=== PATIENT | female | born 1970 | race Hispanic/Latino ===

== ENCOUNTER 2024-02-24 12:06 | Inpatient (IN) | payer BC ==
[~2024-02-24] VITALS: Ht 152.4 cm; Wt 66.6 kg
[2024-02-24] MEDS: ASPIRIN 325MG TAB PO ONE (12:36)
[2024-02-24] MEDS: morPHINE 4 MG SYG IVP ONE (12:37)
[2024-02-24] MEDS: NITROGLYCERIN 0.4 MG SL TAB SL PRN (12:37)
[2024-02-24 13:05] LABS: BASOPHILS # (AUTO) 0.04 K/uL (0.00-0.20); BASOPHILS % (AUTO) 0.9 % (0.0-5.0); CREATININE 0.8 mg/dL (0.5-1.0); EOSINOPHILS # (AUTO) 0.05 K/uL (0.00-0.70); EOSINOPHILS % (AUTO) 1.1 % (0.0-8.0); HEMATOCRIT 33.8 % (36-48); IMMATURE GRANULOCYTE ABSOLUTE 0.02 K/uL (0-1); LYMPHOCYTES # (AUTO) 1.5 K/uL (1.0-4.8); LYMPHOCYTES % (AUTO) 32.4 % (21.0-51.0); MEAN CORPUSCULAR HEMOGLOBIN 29.6 pg (27.0-33.0); MEAN CORPUSCULAR HGB CONC 33.1 g/dL (32.0-36.0); MEAN CORPUSCULAR VOLUME 89.4 fL (79-99); MONOCYTES # (AUTO) 0.3 K/uL (0.1-1.0); NEUTROPHILS # (AUTO) 2.6 K/uL (1.8-7.7); NEUTROPHILS % (AUTO) 59.2 % (40.0-77.0); PLATELET COUNT (AUTO) 245 K/uL (130-400); POTASSIUM 3.9 mmol/L (3.5-5.1); RED BLOOD CELL COUNT(AUTO) 3.78 MIL/uL (4.00-5.50); RED CELL DISTRIBUTION WIDTH 13.2 % (11.0-15.5); WHITE BLOOD COUNT (AUTO) 4.5 K/uL (4.8-10.8)
[2024-02-24 13:19] LABS: ADD UA MICROSCOPIC YES; APPEARANCE,URINE CLEAR (CLEAR); BILIRUBIN,URINE NEGATIVE (NEGATIVE); COLOR,URINE COLORLESS (YELLOW); GLUCOSE, URINE (UA) >=1000 mg/dL (NEGATIVE); KETONES,URINE NEGATIVE (NEGATIVE); LEUKOCYTE ESTERASE ,URINE NEGATIVE Leu/uL (NEGATIVE); NITRATE,URINE NEGATIVE (NEGATIVE); OCCULT BLOOD,URINE NEGATIVE (NEGATIVE); PH,URINE 5.5 (5.0-8.0); PROTEIN,URINE NEGATIVE (NEGATIVE); UROBILINOGEN,URINE 0.2 mg/dL (0.2-1.0)
[2024-02-24 13:23] LABS: MUCUS,URINE RARE LPF (None Seen); RBC,URINE 0-1 /HPF (0-1); SQUAMOUS EPITHELIAL CELL,UR RARE /HPF (0-2); WBC,URINE 0-1 /HPF (0-1)
[2024-02-24 13:33] LABS: B-TYPE NATRIURETIC PEPTIDE 18 pg/mL (0-100)
[2024-02-24] MEDS ORDERED: LACTULOSE 20 GM/30 ML UDCUP PO PRN (15:30)
[2024-02-24] MEDS ORDERED: morPHINE 4 MG SYG IV PRN (15:30)
[2024-02-24] MEDS ORDERED: DEXTROSE 50%-WATER 50 ML DISP.SYRIN IV PRN (15:30)
[2024-02-24] MEDS ORDERED: ondanSETRON 4MG INJ IV PRN (15:30)
[2024-02-24] MEDS ORDERED: morPHINE 2 MG SYG IV PRN (15:30)
[2024-02-24] MEDS ORDERED: MAG/ALUM/SIMETH 30 ML UDCUP PO PRN (15:30)
[2024-02-24] MEDS ORDERED: hydrALAZine 20MG/ML VIAL IV PRN (15:30)
[2024-02-24] MEDS ORDERED: NITROGLYCERIN 0.4 MG SL TAB SL PRN (15:30)
[2024-02-24] MEDS ORDERED: GLUCAGON 1MG KIT 1 MG ML IM PRN (15:30)
[2024-02-24] MEDS ORDERED: DiphenhydrAMINE HCL 25 MG CAPSULE PO PRN (15:30)
[2024-02-24] MEDS ORDERED: guaiFENesin-DM 200/20MG 10ML PO PRN (15:30)
[2024-02-24] MEDS: DEXTROSE 50%-WATER 50 ML DISP.SYRIN IV ONE (15:45)
[2024-02-24] MEDS: acetaMINOPHEN 325 MG TAB PO PRN (15:46)
[2024-02-24 15:53] LABS: HEMOGLOBIN A1C 7.6 % (4.0-6.0)
[2024-02-24] MEDS: INSULIN humuLIN R 100 UNIT/ML 3ML SQ SCH (16:30)
[2024-02-24 16:46] LABS: ABG BASE EXCESS -0.9 mmol/L (-2.0-3.0); ABG OXYGEN SATURATION 95.3 % (94.0-98.0); ABG PCO2 36 mmHg (32-45); DEVICE COMMENT JONY RN LR; PO2, ARTERIAL BG 74.6 mmHg (83.0-108.0); VENT MODE, BG RA (ROOM AIR)
[2024-02-24] MEDS: ceFAZolin SODIUM 2 GM VIAL IVPB SCH (17:27)
[2024-02-24 20:54] VITALS: BP 136/73; PULSE 84; RESP 18; TEMP 98
[2024-02-24] MEDS: FAMOTIDINE 20MG VIAL IV SCH (22:00)
[2024-02-24] MEDS: atorVAStatin 40 MG TABLET PO SCH (22:00)
[2024-02-24 22:30] VITALS: O2SAT 97
[2024-02-25] VITALS (53 sets, daily range): BP systolic 76–167; BP diastolic 46–78; PULSE 79–119; RESP 6–23; TEMP 97.7–99.2; O2SAT 95–100
[2024-02-25 03:47] LABS: HEMATOCRIT 28.8 % (36-48); MEAN CORPUSCULAR HEMOGLOBIN 30.3 pg (27.0-33.0); MEAN CORPUSCULAR VOLUME 91.7 fL (79-99); RED BLOOD CELL COUNT(AUTO) 3.14 MIL/uL (4.00-5.50); WHITE BLOOD COUNT (AUTO) 4.5 K/uL (4.8-10.8)
[2024-02-25 03:59] LABS: CREATININE 0.7 mg/dL (0.5-1.0); POTASSIUM 3.6 mmol/L (3.5-5.1)
[2024-02-25 04:02] LABS: INR 0.95 (0.85-1.15); PROTHROMBIN TIME 10.3 SEC (9.6-11.6)
[2024-02-25 04:07] LABS: ALBUMIN 3.1 g/dL (3.5-5.0); BILIRUBIN,TOTAL 0.2 mg/dL (0.2-1.0); TOTAL PROTEIN, SERUM 6.6 g/dL (6.0-8.3)
[2024-02-25] MEDS ORDERED: INSU3INS5 SQ (04:11)
[2024-02-25] MEDS ORDERED: aminoCAProic ACID 5,000MG VIAL 15,000 MG in 0.9% NACL 500ML IV.SOLN 420 ML IV PRN (07:30)
[2024-02-25] MEDS ORDERED: EPINEPHrine PF 1MG (1:1,000) 10 MG in 0.9% NACL 250ML 240 ML IV PRN ×2 (07:30→14:30)
[2024-02-25] MEDS ORDERED: NOREPINEPHRIN 8MG/250ML NS 250 ML IV PRN (07:30)
[2024-02-25] MEDS ORDERED: NITROGLYCERIN 50MG/D5W 250ML 1 BOT ONE (07:39)
[2024-02-25] MEDS ORDERED: HEParin-NS 1,000 UNIT/500 ML 500 ML IV ONE (08:41)
[2024-02-25] MEDS ORDERED: ceFAZolin SODIUM 1 GM VIAL ONE (08:41)
[2024-02-25] MEDS ORDERED: PAPAVERINE HCL 30 MG/ML 2ML VIAL ONE (08:41)
[2024-02-25] MEDS: ENOXAPARIN SODIUM 40 MG/0.4 ML SYRINGE SQ SCH (09:00)
[2024-02-25] MEDS: ASPIRIN 81 MG EC TAB PO SCH (09:53)
[2024-02-25] MEDS: metoPROLOL tartRATE 25 MG TAB PO STA (10:03)
[2024-02-25] MEDS: ceFAZolin SODIUM 2 GM VIAL ONE ×2 (10:50→11:43)
[2024-02-25] MEDS: 0.9%NACL 1000ML 1,000 ML IV ONE (11:21)
[2024-02-25] MEDS ORDERED: PROTamine SULFate 10 MG/ML 25ML VIAL IV ONE (11:24)
[2024-02-25] MEDS ORDERED: HEParin 10,000 UNIT/10ML (1,000 UNIT/ML) VIAL ONE (11:24)
[2024-02-25] MEDS ORDERED: EPINEPHrine PF 1MG (1:1,000) 1 MG/ML AMP ONE (11:24)
[2024-02-25] MEDS ORDERED: SODIUM BICARB 50MEQ 50ML VIAL 200 ML ONE (11:24)
[2024-02-25] MEDS ORDERED: LIDOCAINE PF 100MG/5ML (2%) SYRINGE 5ML ONE (11:24)
[2024-02-25] MEDS ORDERED: NOREPINEPHRINE BITARTRATE 1 MG/1 ML ML IV ONE (11:24)
[2024-02-25] MEDS ORDERED: GLYCOPYRROLATE 0.2 MG/ML 5 ML VIAL ONE (11:25)
[2024-02-25] MEDS ORDERED: MIDAZOLAM HCL 1 MG/ML 2ML VIAL ONE ×2 (11:25→15:17)
[2024-02-25] MEDS ORDERED: proPOFol 10 MG/ML 20ML VIAL IV ONE (11:25)
[2024-02-25] MEDS ORDERED: rocuRONium bROMide 10MG/1ML 5ML VL ONE (11:25)
[2024-02-25] MEDS ORDERED: FENTanyl CITRate PF 50 MCG/1 ML 20ML VIAL IJ ONE (11:25)
[2024-02-25] MEDS ORDERED: ketaMINE 50MG/ML SYRINGE 50 MG/ML DISP.SYRIN ONE ×2 (11:30→15:17)
[2024-02-25] MEDS: ceFAZolin SODIUM 2 GM VIAL IVPB ONE (11:50)
[2024-02-25 12:32] LABS: ABG BASE EXCESS -0.8 mmol/L (-2.0-3.0); ABG HCO3 22.4 mmol/L (21.0-28.0); ABG OXYGEN SATURATION 99.5 % (94.0-98.0); ABG PCO2 32 mmHg (32-45); ABG PH 7.465 (7.350-7.450); CARBON MONOXIDE 0.3 % (0.5-1.5); DEVICE COMMENT 1; HHb 0.5
[2024-02-25] MEDS ORDERED: dexmedeTOMIDine 400MCG/NS100ML IV SCH (14:00)
[2024-02-25] MEDS: HEParin 5,000 UNIT VIAL IRRIG ONE (14:00)
[2024-02-25] MEDS ORDERED: MAGNESIUM HYDROXIDE 30 ML/UDCUP PO PRN (14:00)
[2024-02-25] MEDS ORDERED: aminoCAProic ACID 5,000MG VIAL 15,000 MG in 0.9% NACL 250ML 250 ML IV SCH (14:30)
[2024-02-25] MEDS ORDERED: NOREPINEPHRIN 4MG/NS 250ML 250 ML IV SCH (14:30)
[2024-02-25] MEDS ORDERED: poTASSium PHOS 15 mMOL+NS250ML 250 ML IV PRN (14:30)
[2024-02-25] MEDS ORDERED: NOREPINEPHRINE BITARTRATE 8 MG in DEXTROSE 5%-WATER 250 ML IV PRN (14:30)
[2024-02-25] MEDS ORDERED: DEXTROSE 50%-WATER 50 ML DISP.SYRIN IV PRN (14:30)
[2024-02-25] MEDS ORDERED: proPOFol 1000 MG/100 ML 100 ML IV PRN (14:30)
[2024-02-25] MEDS ORDERED: NITROGLYCERIN 50MG/D5W 250ML 250 BOT IV SCH (14:30)
[2024-02-25] MEDS ORDERED: acetaMINOPHEN 325 MG TAB PO PRN (14:30)
[2024-02-25] MEDS ORDERED: GLUCAGON 1MG KIT 1 MG ML IM PRN (14:30)
[2024-02-25] MEDS ORDERED: NOREPINEPHRIN 8MG/250ML NS 250 ML IV SCH (14:30)
[2024-02-25] MEDS ORDERED: 0.9%NACL 10ML VIAL IVP PRN (14:30)
[2024-02-25] MEDS ORDERED: 0.9% NACL 500ML IV.SOLN 500 ML IV SCH (14:30)
[2024-02-25] MEDS ORDERED: acetaMINOPHEN 650 MG SUPPOSITORY RC PRN (14:30)
[2024-02-25 15:04] LABS: ABG BASE EXCESS -4.7 mmol/L (-2.0-3.0); ABG HCO3 19.4 mmol/L (21.0-28.0); ABG OXYGEN SATURATION 99.6 % (94.0-98.0); ABG PCO2 32 mmHg (32-45); ABG PH 7.398 (7.350-7.450); CARBON MONOXIDE 0.3 % (0.5-1.5); DEVICE COMMENT 2; HHb 0.4; PO2, ARTERIAL BG > 500.0 mmHg (83.0-108.0)
[2024-02-25] MEDS ORDERED: PROTamine SULFate 10 MG/ML 5 ML VIAL ONE (15:17)
[2024-02-25 15:40] LABS: ABG BASE EXCESS 0.6 mmol/L (-2.0-3.0); ABG HCO3 24.4 mmol/L (21.0-28.0); ABG OXYGEN SATURATION 99.6 % (94.0-98.0); ABG PCO2 35 mmHg (32-45); ABG PH 7.459 (7.350-7.450); CARBON MONOXIDE 0.2 % (0.5-1.5); DEVICE COMMENT 3; HHb 0.4; PO2, ARTERIAL BG 431.7 mmHg (83.0-108.0)
[2024-02-25 16:12] LABS: ABG BASE EXCESS -0.2 mmol/L (-2.0-3.0); ABG HCO3 24.6 mmol/L (21.0-28.0); ABG PCO2 41 mmHg (32-45); ABG PH 7.396 (7.350-7.450); CARBON MONOXIDE 0.3 % (0.5-1.5); PO2, ARTERIAL BG 457.5 mmHg (83.0-108.0); VENT MODE, BG SIMV PS (ROOM AIR)
[2024-02-25 16:21] LABS: HEMATOCRIT 23.1 % (36-48); MEAN CORPUSCULAR HEMOGLOBIN 30.8 pg (27.0-33.0); MEAN CORPUSCULAR HGB CONC 32.9 g/dL (32.0-36.0); MEAN CORPUSCULAR VOLUME 93.5 fL (79-99); RED BLOOD CELL COUNT(AUTO) 2.47 MIL/uL (4.00-5.50)
[2024-02-25 16:30] LABS: INR 1.06 (0.85-1.15); PROTHROMBIN TIME 11.4 SEC (9.6-11.6)
[2024-02-25 16:31] LABS: PARTIAL THROMBOPLASTIN TIME 23.3 SEC (26.3-35.5)
[2024-02-25 16:32] LABS: CREATININE 0.8 mg/dL (0.5-1.0); MAGNESIUM 1.2 mg/dL (1.80-2.40); PHOSPHORUS 4.9 mg/dL (2.5-4.9); POTASSIUM 4.1 mmol/L (3.5-5.1)
[2024-02-25] MEDS ORDERED: ASPIRIN 81MG CHEW TAB NG ONE (17:00)
[2024-02-25] MEDS: morPHINE 2 MG SYG IV PRN ×2 (17:16→18:33)
[2024-02-25] MEDS: 0.9%NACL 1000ML 1,000 ML IV SCH (17:18)
[2024-02-25 17:19] LABS: ABG BASE EXCESS -1.4 mmol/L (-2.0-3.0); ABG OXYGEN SATURATION 99.1 % (94.0-98.0); ABG PCO2 37 mmHg (32-45); ABG PH 7.407 (7.350-7.450); CARBON MONOXIDE 0.3 % (0.5-1.5); HHb 0.9; PO2, ARTERIAL BG 482.5 mmHg (83.0-108.0); VENT MODE, BG SIMV (ROOM AIR)
[2024-02-25] MEDS: PoTASSium chloRIDE 20MEQ/100ML 100 ML IV PRN (17:22)
[2024-02-25] MEDS: SODIUM BICARB 50MEQ 50ML VIAL IV PRN (17:24)
[2024-02-25] MEDS: INSULIN REGULAR, HUMAN 3ML 100 UNIT in 0.9%NACL 100ML 99 ML IV SCH (17:26)
[2024-02-25] MEDS: ALBUMIN (HUMAN) 5% 250 ML IV PRN (17:29)
[2024-02-25] MEDS: MAGNESIUM 2GM PREMIX 50ML 50 ML IV PRN (17:36)
[2024-02-25 17:47] LABS: HEMATOCRIT 24.1 % (36-48)
[2024-02-25] MEDS ORDERED: acetaMINOPHEN 1,000 MG/100 ML VIAL IV SCH (18:00)
[2024-02-25 18:30] LABS: ABG HCO3 23.3 mmol/L (21.0-28.0); ABG OXYGEN SATURATION 98.6 % (94.0-98.0); ABG PCO2 37 mmHg (32-45); CARBON MONOXIDE 0.3 % (0.5-1.5); DEVICE COMMENT ALINE; HHb 1.4; VENT MODE, BG SIMV,PS10 (ROOM AIR)
[2024-02-25] MEDS: ceFAZolin SODIUM 2 GM VIAL IVPB SCH (18:33)
[2024-02-25] MEDS: FAMOTIDINE 20MG VIAL IV SCH (19:35)
[2024-02-25] MEDS: ondanSETRON 4MG INJ IV PRN (19:35)
[2024-02-25] MEDS: traMADol HCL 50 MG TABLET PO PRN (19:36)
[2024-02-25] MEDS: doCUSate SODIUM 100 MG CAP PO SCH (19:40)
[2024-02-25 19:52] LABS: ABG BASE EXCESS -1.3 mmol/L (-2.0-3.0); ABG HCO3 23.3 mmol/L (21.0-28.0); ABG OXYGEN SATURATION 98.1 % (94.0-98.0); ABG PCO2 38 mmHg (32-45); ABG PH 7.401 (7.350-7.450); CARBON MONOXIDE 0.3 % (0.5-1.5); DEVICE COMMENT ALINE; HHb 1.9; PO2, ARTERIAL BG 157.1 mmHg (83.0-108.0); VENT MODE, BG SIMV,PS10 (ROOM AIR)
[2024-02-25] MEDS: CALCIUM GLUC 1GM 1 GM in 0.9%NACL 50ML 50 ML IV PRN (20:15)
[2024-02-25] MEDS: ASPIRIN 81MG CHEW TAB NG ONE (20:17)
[2024-02-25] MEDS: acetaMINOPHEN 1,000 MG/100 ML VIAL IV SCH (20:17)
[2024-02-25 20:49] LABS: ABG BASE EXCESS 0.3 mmol/L (-2.0-3.0); ABG HCO3 24.9 mmol/L (21.0-28.0); ABG PCO2 40 mmHg (32-45); CARBON MONOXIDE 0.3 % (0.5-1.5); PO2, ARTERIAL BG 146.4 mmHg (83.0-108.0); VENT MODE, BG SIMV,PS10 (ROOM AIR)
[2024-02-25 20:50] LABS: DEVICE COMMENT ALINE
[2024-02-25 21:55] LABS: ABG BASE EXCESS -1.4 mmol/L (-2.0-3.0); ABG HCO3 23.1 mmol/L (21.0-28.0); ABG OXYGEN SATURATION 97.9 % (94.0-98.0); ABG PCO2 38 mmHg (32-45); ABG PH 7.407 (7.350-7.450); CARBON MONOXIDE 0.3 % (0.5-1.5); DEVICE COMMENT ALINE; HHb 2.1; VENT MODE, BG SIMV,PS10 (ROOM AIR)
[2024-02-26] VITALS (99 sets, daily range): BP systolic 87–157; BP diastolic 42–113; PULSE 107–123; RESP 7–34; TEMP 97.9–98.8; O2SAT 100
[2024-02-26] MEDS: traMADol HCL 50 MG TABLET PO PRN (00:43)
[2024-02-26 02:37] LABS: PROTHROMBIN TIME 10.8 SEC (9.6-11.6)
[2024-02-26 02:38] LABS: PARTIAL THROMBOPLASTIN TIME 23.7 SEC (26.3-35.5)
[2024-02-26 02:47] LABS: HEMATOCRIT 21.4 % (36-48); MEAN CORPUSCULAR HEMOGLOBIN 30.9 pg (27.0-33.0); MEAN CORPUSCULAR HGB CONC 33.2 g/dL (32.0-36.0); RED BLOOD CELL COUNT(AUTO) 2.3 MIL/uL (4.00-5.50); RED CELL DISTRIBUTION WIDTH 13.4 % (11.0-15.5); WHITE BLOOD COUNT (AUTO) 7.6 K/uL (4.8-10.8)
[2024-02-26 02:58] LABS: CREATININE 0.9 mg/dL (0.5-1.0); MAGNESIUM 1.9 mg/dL (1.80-2.40); PHOSPHORUS 2.7 mg/dL (2.5-4.9); POTASSIUM 3.6 mmol/L (3.5-5.1)
[2024-02-26] MEDS: furoSEMIDE 20MG VIAL IV SCH (07:44)
[2024-02-26] MEDS: acetaMINOPHEN 325 MG TAB PO PRN (09:03)
[2024-02-26] MEDS: ALBUMIN (HUMAN) 25% 100 ML IV PRN (15:34)
[2024-02-26] MEDS: DEXTROSE 5 %-0.45 % NACL 1,000 ML IV SCH (15:59)
[2024-02-26 16:11] LABS: HEMATOCRIT 22.3 % (36-48)
[2024-02-27] VITALS (55 sets, daily range): BP systolic 88–156; BP diastolic 51–76; PULSE 88–118; RESP 10–24; TEMP 98.1–98.8; O2SAT 96–100
[2024-02-27 00:37] LABS: HEMATOCRIT 27.9 % (36-48); MEAN CORPUSCULAR HEMOGLOBIN 30.5 pg (27.0-33.0); MEAN CORPUSCULAR HGB CONC 32.6 g/dL (32.0-36.0); MEAN CORPUSCULAR VOLUME 93.6 fL (79-99); RED BLOOD CELL COUNT(AUTO) 2.98 MIL/uL (4.00-5.50); RED CELL DISTRIBUTION WIDTH 14.3 % (11.0-15.5); WHITE BLOOD COUNT (AUTO) 8.3 K/uL (4.8-10.8)
[2024-02-27 00:45] LABS: CREATININE 0.7 mg/dL (0.5-1.0); POTASSIUM 3.8 mmol/L (3.5-5.1)
[2024-02-27 03:57] LABS: HEMATOCRIT 27.7 % (36-48); MEAN CORPUSCULAR HEMOGLOBIN 30.3 pg (27.0-33.0); MEAN CORPUSCULAR HGB CONC 32.5 g/dL (32.0-36.0); MEAN CORPUSCULAR VOLUME 93.3 fL (79-99); RED BLOOD CELL COUNT(AUTO) 2.97 MIL/uL (4.00-5.50); RED CELL DISTRIBUTION WIDTH 14.4 % (11.0-15.5); WHITE BLOOD COUNT (AUTO) 8.7 K/uL (4.8-10.8)
[2024-02-27 04:19] LABS: CREATININE 0.6 mg/dL (0.5-1.0); POTASSIUM 4.5 mmol/L (3.5-5.1)
[2024-02-27] MEDS: furoSEMIDE 20 MG TABLET PO SCH (08:38)
[2024-02-27] MEDS: INSULIN humuLIN R 100 UNIT/ML 3ML SQ SCH (10:45)
[2024-02-27] MEDS: metoPROLOL tartRATE 25 MG TAB PO SCH (11:36)
[2024-02-28] VITALS (27 sets, daily range): BP systolic 92–123; BP diastolic 49–76; PULSE 89–114; RESP 11–22; TEMP 97.9–99.3; O2SAT 96–99
[2024-02-28 04:43] LABS: HEMATOCRIT 27.4 % (36-48); MEAN CORPUSCULAR HEMOGLOBIN 31.1 pg (27.0-33.0); MEAN CORPUSCULAR HGB CONC 32.8 g/dL (32.0-36.0); MEAN CORPUSCULAR VOLUME 94.8 fL (79-99); RED BLOOD CELL COUNT(AUTO) 2.89 MIL/uL (4.00-5.50); RED CELL DISTRIBUTION WIDTH 14.3 % (11.0-15.5); WHITE BLOOD COUNT (AUTO) 9.7 K/uL (4.8-10.8)
[2024-02-28 04:56] LABS: CREATININE 1.1 mg/dL (0.5-1.0); POTASSIUM 4.3 mmol/L (3.5-5.1)
[2024-02-28] MEDS: ENOXAPARIN SODIUM 30 MG/0.3 ML SQ SCH (08:08)
[2024-02-28] MEDS: furoSEMIDE 20MG VIAL IV ONE (11:43)
[2024-02-28 12:18] LABS: POTASSIUM 3.6 mmol/L (3.5-5.1)
[2024-02-28 15:35] LABS: INR <= 0.93 (0.85-1.15); PROTHROMBIN TIME 9.8 SEC (9.6-11.6)
[2024-02-28 15:36] LABS: PARTIAL THROMBOPLASTIN TIME 28.5 SEC (26.3-35.5)
[2024-02-28] MEDS: INSULIN GLARgine 100 UNITS/ML 10 ML VIAL SQ SCH (22:23)
[2024-02-29] VITALS (9 sets, daily range): BP systolic 110–136; BP diastolic 66–78; PULSE 77–120; RESP 16–20; TEMP 97.4–99.7; O2SAT 95–98
[2024-02-29 04:00] LABS: HEMATOCRIT 27.5 % (36-48); MEAN CORPUSCULAR HEMOGLOBIN 30.4 pg (27.0-33.0); MEAN CORPUSCULAR HGB CONC 32.4 g/dL (32.0-36.0); MEAN CORPUSCULAR VOLUME 93.9 fL (79-99); RED BLOOD CELL COUNT(AUTO) 2.93 MIL/uL (4.00-5.50); RED CELL DISTRIBUTION WIDTH 13.9 % (11.0-15.5); WHITE BLOOD COUNT (AUTO) 6.5 K/uL (4.8-10.8)
[2024-02-29 04:11] LABS: CREATININE 0.8 mg/dL (0.5-1.0); POTASSIUM 3.4 mmol/L (3.5-5.1)
[2024-02-29] MEDS ORDERED: PoTASSium chl 10% ELIXIR 20MEQ 20 MEQ/15 ML UDCUP PO PRN (05:30)
[2024-02-29] MEDS ORDERED: MAGNESIUM 2GM PREMIX 50ML 50 ML IV PRN (05:30)
[2024-02-29] MEDS ORDERED: PoTASSium chloRIDE 20MEQ/100ML 100 ML IV PRN (05:30)
[2024-02-29] MEDS: PoTASSium chloRIDE 20MEQ ER 20 MEQ ERTAB PO PRN (06:30)
[2024-02-29] MEDS: DiphenhydrAMINE HCL 25 MG CAPSULE PO ONE (18:21)
[2024-03-01 03:40] LABS: HEMATOCRIT 27.6 % (36-48); MEAN CORPUSCULAR HEMOGLOBIN 30.1 pg (27.0-33.0); MEAN CORPUSCULAR HGB CONC 31.9 g/dL (32.0-36.0); MEAN CORPUSCULAR VOLUME 94.5 fL (79-99); RED BLOOD CELL COUNT(AUTO) 2.92 MIL/uL (4.00-5.50); RED CELL DISTRIBUTION WIDTH 13.5 % (11.0-15.5); WHITE BLOOD COUNT (AUTO) 4.8 K/uL (4.8-10.8)
[2024-03-01 03:45] LABS: CREATININE 0.6 mg/dL (0.5-1.0); POTASSIUM 4.1 mmol/L (3.5-5.1)
[2024-03-01 04:16] VITALS: BP 157/80; PULSE 58; RESP 20; TEMP 98.2
[2024-03-01 08:00] VITALS: BP 117/73; PULSE 117; RESP 16; TEMP 99.3; O2SAT 98
[2024-03-01] MEDS: LACTULOSE 20 GM/30 ML UDCUP PO PRN (08:49)
[2024-03-01] MEDS: metoPROLOL tartRATE 25 MG TAB PO SCH (08:51)
[2024-03-01 12:23] VITALS: BP 110/69; PULSE 104; RESP 16; TEMP 98.1
[2024-03-01 16:13] VITALS: BP 111/73; PULSE 107; RESP 16; TEMP 98.9
[2024-03-01 19:55] VITALS: BP 123/79; PULSE 117; RESP 18; TEMP 98.6
[2024-03-01 20:00] VITALS: O2SAT 98
[2024-03-02] VITALS (9 sets, daily range): BP systolic 92–132; BP diastolic 55–81; PULSE 78–118; RESP 16–18; TEMP 98.3–99.2; O2SAT 95–98
[2024-03-02] MEDS: traMADol HCL 50 MG TABLET PO PRN (11:03)
[2024-03-03 03:05] VITALS: BP 113/72; PULSE 103; RESP 16; TEMP 97.7
[2024-03-03 04:06] LABS: BASOPHILS # (AUTO) 0.02 K/uL (0.00-0.20); BASOPHILS % (AUTO) 0.5 % (0.0-5.0); EOSINOPHILS # (AUTO) 0.05 K/uL (0.00-0.70); EOSINOPHILS % (AUTO) 1.2 % (0.0-8.0); HEMATOCRIT 29.5 % (36-48); IMMATURE GRANULOCYTE ABSOLUTE 0.04 K/uL (0-1); LYMPHOCYTES # (AUTO) 1.5 K/uL (1.0-4.8); LYMPHOCYTES % (AUTO) 36.3 % (21.0-51.0); MEAN CORPUSCULAR HEMOGLOBIN 30.6 pg (27.0-33.0); MEAN CORPUSCULAR HGB CONC 32.5 g/dL (32.0-36.0); MEAN CORPUSCULAR VOLUME 93.9 fL (79-99); MONOCYTES # (AUTO) 0.5 K/uL (0.1-1.0); MONOCYTES % (AUTO) 11.7 % (3.0-13.0); NEUTROPHILS % (AUTO) 49.3 % (40.0-77.0); PLATELET COUNT (AUTO) 234 K/uL (130-400); RED BLOOD CELL COUNT(AUTO) 3.14 MIL/uL (4.00-5.50); RED CELL DISTRIBUTION WIDTH 13.4 % (11.0-15.5); WHITE BLOOD COUNT (AUTO) 4.1 K/uL (4.8-10.8)
[2024-03-03 04:33] LABS: CREATININE 0.7 mg/dL (0.5-1.0); MAGNESIUM 1.5 mg/dL (1.80-2.40); PHOSPHORUS 4.7 mg/dL (2.5-4.9); POTASSIUM 3.5 mmol/L (3.5-5.1); THYROID STIMULATING HORMONE 4.33 uIU/mL (0.36-3.74)
[2024-03-03 08:23] VITALS: BP 119/59; PULSE 108; RESP 16; TEMP 97.9
[2024-03-03 13:28] VITALS: BP 115/69; PULSE 109; RESP 16; TEMP 99.9
[2024-03-03 16:56] VITALS: BP 115/74; PULSE 112; RESP 16; TEMP 99.6
[2024-03-03 20:30] VITALS: BP 128/77; PULSE 125; RESP 18; TEMP 98.3
[2024-03-03 21:31] VITALS: O2SAT 93
[2024-03-04 00:30] VITALS: BP 105/66; PULSE 101; RESP 18; TEMP 98.4
[2024-03-04 03:29] LABS: BASOPHILS # (AUTO) 0.02 K/uL (0.00-0.20); BASOPHILS % (AUTO) 0.4 % (0.0-5.0); EOSINOPHILS # (AUTO) 0.06 K/uL (0.00-0.70); EOSINOPHILS % (AUTO) 1.3 % (0.0-8.0); HEMATOCRIT 28.5 % (36-48); IMMATURE GRANULOCYTE ABSOLUTE 0.06 K/uL (0-1); LYMPHOCYTES # (AUTO) 1.2 K/uL (1.0-4.8); LYMPHOCYTES % (AUTO) 26.1 % (21.0-51.0); MEAN CORPUSCULAR HEMOGLOBIN 30.7 pg (27.0-33.0); MEAN CORPUSCULAR HGB CONC 32.6 g/dL (32.0-36.0); MEAN CORPUSCULAR VOLUME 94.1 fL (79-99); MONOCYTES # (AUTO) 0.5 K/uL (0.1-1.0); MONOCYTES % (AUTO) 10.4 % (3.0-13.0); NEUTROPHILS # (AUTO) 2.8 K/uL (1.8-7.7); NEUTROPHILS % (AUTO) 60.5 % (40.0-77.0); PLATELET COUNT (AUTO) 200 K/uL (130-400); RED BLOOD CELL COUNT(AUTO) 3.03 MIL/uL (4.00-5.50); RED CELL DISTRIBUTION WIDTH 13.5 % (11.0-15.5); WHITE BLOOD COUNT (AUTO) 4.6 K/uL (4.8-10.8)
[2024-03-04 03:46] LABS: CREATININE 0.6 mg/dL (0.5-1.0); POTASSIUM 3.9 mmol/L (3.5-5.1)
[2024-03-04 04:30] VITALS: BP 150/94; PULSE 77; RESP 18; TEMP 98.3
[2024-03-04 08:00] VITALS: BP 111/72; PULSE 68; RESP 20; TEMP 97.6; O2SAT 93
[2024-03-04 12:00] VITALS: BP 112/66; PULSE 101; RESP 20; TEMP 98.1
== END 2024-03-04 14:15 | DRG 235 ==
LOC: EDH 12:06 → EDHIP 15:25 → 2DH 19:01 → 2CV 02-25 10:23 → 2CH 02-26 22:27 → 2DH 02-28 14:31
PROVIDERS: ADMIT Internal Medicine; ATTEND Internal Medicine
PROC: 02100Z9 Bypass Coronary Artery, One Artery from Left Internal Mammary, Open Approach (ICD-10-PCS; principal; 2024-02-25 10:30)
PROC: 021009W Bypass Coronary Artery, One Artery from Aorta with Autologous Venous Tissue, Open Approach (ICD-10-PCS; 2024-02-25 10:30)
PROC: 06BQ4ZZ Excision of Left Saphenous Vein, Percutaneous Endoscopic Approach (ICD-10-PCS; 2024-02-25 10:30)
PROC: 03B Upper Arteries, Excision (ICD-10-PCS; 2024-02-25 10:30)
PROC: 0PS004Z Reposition Sternum with Internal Fixation Device, Open Approach (ICD-10-PCS; 2024-02-25 10:30)
PROC: B24BZZ4 Ultrasonography of Heart with Aorta, Transesophageal (ICD-10-PCS; 2024-02-25 10:30)
PROC: 30233N1 Transfusion of Nonautologous Red Blood Cells into Peripheral Vein, Percutaneous Approach (ICD-10-PCS; 2024-02-26)
DX: I25.10 Atherosclerotic heart disease of native coronary artery without angina pectoris (principal); I21.3 ST elevation (STEMI) myocardial infarction of unspecified site; J90 Pleural effusion, not elsewhere classified; J98.11 Atelectasis; E87.0 Hyperosmolality and hypernatremia; E11.65 Type 2 diabetes mellitus with hyperglycemia; I10 Essential (primary) hypertension; E78.5 Hyperlipidemia, unspecified; K59.00 Constipation, unspecified; M19.09 Primary osteoarthritis, other specified site; D64.9 Anemia, unspecified; E78.00 Pure hypercholesterolemia, unspecified; E83.51 Hypocalcemia; E87.70 Fluid overload, unspecified; Z79.899 Other long term (current) drug therapy; Z79.82 Long term (current) use of aspirin; Z79.02 Long term (current) use of antithrombotics/antiplatelets; Z90.49 Acquired absence of other specified parts of digestive tract
CPT/HCPCS: 36415; 36600; 71045; 72131; 76770; 80048; 80053; 80061; 81001; 82306; 82330; 82435; 82550; 82803; 82947; 82948; 83036; 83605; 83735; 83880; 83930; 84100; 84132; 84295; 84443; 84484; 85014; 85018; 85025; 85027; 85347; 85384; 85610; 85730; 86850; 86900; 86901; 86923; 87641; 93005; 93306; 93312; 93325; 93880; 94002; 94010; 96365; 96372; 96375; A7048; C1729; G0378; J0171; J0690; J1644; J1650; J1815; J1940; J2001; J2250; J2270; J2405; J2440; J2704; J2720; J3010; J3475; J3480; J3490; J7030; J7040; J7070; P9016; P9045; P9046; Q0163; A4215; A4216; A4221; A4222; A4223; A4315; A4452; A4649; A6204; A6219; C1713; C1776; C1887

== ENCOUNTER 2024-11-26 21:59 | Observation (INO) | payer BC ==
[~2024-11-26] VITALS: Ht 157.5 cm; Wt 62.6 kg
--- NOTE | 2024-11-26 22:15 | ERN ---
General Chief Complaint: Chest Pain Stated Complaint: CHEST PAIN Time Seen by MD: 22:01 Source: patient, family History of Present Illness Initial Comments Patient is a 54-year-old female coming in to be evaluated for chest pain. Patient has a extensive history of cardiac issues. She states that she has a CABG in his pending a stent placement. Her pan shaker is Dr. Vora. Patient has been it was pressure is a intense reason why she he is here. Allergies: Coded Allergies: No Known Allergies (Unverified Allergy, Unknown, 02/24/24) Home Meds No Active Prescriptions or Reported Meds Past Medical History Past Medical History: Arrythmia, Diabetes-Type II Medical History Other: NEUROPATHY Past Surgical History: Cholecystectomy, Surgical History Other: BILATARAL EYE SHUNTS Results Laboratory and Microbiology Lab and Micro Result Laboratory Tests Test 11/26/24 22:17 White Blood Count 4.5 K/uL (4.8-10.8) L Red Blood Count 3.61 MIL/uL (4.00-5.50) L Hemoglobin 10.8 g/dL (12.0-16.0) L Hematocrit 33.3 % (36-48) L Mean Corpuscular Volume 92.2 fL (79-99) Mean Corpuscular Hemoglobin 29.9 pg (27.0-33.0) Mean Corpuscular Hemoglobin Concent 32.4 g/dL (32.0-36.0) Red Cell Distribution Width 13.8 % (11.0-15.5) Platelet Count 180 K/uL (130-400) Mean Platelet Volume 10.8 fL (7.5-10.5) H Immature Granulocyte % (Auto) 0.2 % (0-1) Neutrophils (%) (Auto) 43.8 % (40.0-77.0) Lymphocytes (%) (Auto) 43.5 % (21.0-51.0) Monocytes (%) (Auto) 9.8 % (3.0-13.0) Eosinophils (%) (Auto) 1.6 % (0.0-8.0) Basophils (%) (Auto) 1.1 % (0.0-5.0) Neutrophils # (Auto) 2.0 K/uL (1.8-7.7) Lymphocytes # (Auto) 2.0 K/uL (1.0-4.8) Monocytes # (Auto) 0.4 K/uL (0.1-1.0) Eosinophils # (Auto) 0.07 K/uL (0.00-0.70) Basophils # (Auto) 0.05 K/uL (0.00-0.20) Absolute Immature Granulocyte (auto 0.01 K/uL (0-1) Nucleated Red Blood Cells 0.0 % (0.0-0.19) Sodium Level 142 mmol/L (136-145) Potassium Level 3.8 mmol/L (3.5-5.1) Chloride Level 104 mmol/L (101-111) Carbon Dioxide Level 26 mmol/L (21-32) Blood Urea Nitrogen 35 mg/dL (7-18) H Creatinine 0.7 mg/dL (0.5-1.0) Glomerular Filtration Rate Calc 101 mL/min (>90) Random Glucose 159 mg/dL (70-105) H Total Calcium 8.8 mg/dL (8.5-10.1) Magnesium Level 1.90 mg/dL (1.80-2.40) Total Creatine Kinase 112 U/L (21-232) # Troponin I High Sensitivity 13 ng/L (4-50) Labs Reviewed?: Yes EKG/XRAY/US/CT/MRI EKG Comment 11/26/2024 time 9:55 p.m. Ventricular rate 81 Sinus rhythm NM [address] wave elevation or depression X-RAY Comment Chest x-ray-[facility] MDM: Differential diagnosis: Chest pain, history of CABG, Rationale: Tests considered and ordered secondary to shared decision making include: labs, ECG and radiology Previous outside records reviewed: Old ER visits. Risk of complication and/or morbidity or mortality of patient management: None Medications-Per medication reconciliation Need for hospitalization: Patient does meet criteria for hospitalization. Need for emergency major/minor surgery: No There are no social concerns with this patient. Prescription drug management Prescriptions will include symptomatic care Patient's prior external medical records from other ER visits were reviewed by me as indicated. Prior testing and results from previous visits were reviewed. Prior tests were taken into account with medical decision making and resource utilization, independent historian/historians were used to obtain complete medical history. I independently interpreted the test that were performed, results were reviewed by me and considered findings on radiology if ordered. Medical management and examination interpretation discussions were had by me with other qualified healthcare professionals as indicated for the patient's care. Patient will be admitted under the care of hospitalist group for ongoing management. ED Course Orders Procedure Category Date Status Time Cbc With Differential LAB 11/26/24 Complete 22:06 Chest 1vw RAD 11/26/24 Resulted 22:06 12 Lead Ekg Tracing- EKG 11/26/24 Logged Technical 22:06 Lactated Ringers PHA 11/26/24 Complete 1000ml (Lactated 22:30 Magnesium LAB 11/26/24 Complete 22:06 Creatine Kinase, Total LAB 11/26/24 Complete 22:06 Troponin I High LAB 11/26/24 Complete Sensitivity 22:06 Urinalysis Profile LAB 11/26/24 Logged 22:06 Basic Metabolic Panel LAB 11/26/24 Complete 22:06 Troponin I High LAB 11/26/24 Logged Sensitivity 23:39 Current Medications Medications (Trade) Dose Ordered Sig/Mundo Route PRN Reason Start Time Stop Time Status Last Admin Dose Admin Lactated Ringer's 1,000 ml @ 0 mls/hr ONCE ONCE IV 11/26/24 22:30 11/26/24 22:31 DC 11/26/24 22:56 Vital Signs Date Time Temp Pulse Resp B/P (MAP) Pulse Ox O2 Delivery O2 Flow Rate FiO2 11/26/24 23:18 84 16 117/61 98 Room Air* 0 21 11/26/24 22:23 98.2 85 16 113/64 98 Room Air* 0 21 DX & DISP Disposition: Inpatient Decision to Admit Time: 23:47 Departure Impression: Primary Impression: Chest pain with high risk for cardiac etiology Condition: Stable Scripts No Active Prescriptions or Reported Meds Referrals: LANDON BUSCH (PCP) MARITZA NEGRON MD Nov 26, 2024 22:15
[2024-11-26 22:23] LABS: BASOPHILS # (AUTO) 0.05 K/uL (0.00-0.20); BASOPHILS % (AUTO) 1.1 % (0.0-5.0); EOSINOPHILS # (AUTO) 0.07 K/uL (0.00-0.70); EOSINOPHILS % (AUTO) 1.6 % (0.0-8.0); HEMATOCRIT 33.3 % (36-48); IMMATURE GRANULOCYTE ABSOLUTE 0.01 K/uL (0-1); LYMPHOCYTES % (AUTO) 43.5 % (21.0-51.0); MEAN CORPUSCULAR HEMOGLOBIN 29.9 pg (27.0-33.0); MEAN CORPUSCULAR HGB CONC 32.4 g/dL (32.0-36.0); MEAN CORPUSCULAR VOLUME 92.2 fL (79-99); MONOCYTES # (AUTO) 0.4 K/uL (0.1-1.0); MONOCYTES % (AUTO) 9.8 % (3.0-13.0); NEUTROPHILS % (AUTO) 43.8 % (40.0-77.0); PLATELET COUNT (AUTO) 180 K/uL (130-400); RED BLOOD CELL COUNT(AUTO) 3.61 MIL/uL (4.00-5.50); RED CELL DISTRIBUTION WIDTH 13.8 % (11.0-15.5); WHITE BLOOD COUNT (AUTO) 4.5 K/uL (4.8-10.8)
[2024-11-26 22:39] LABS: CREATININE 0.7 mg/dL (0.5-1.0); POTASSIUM 3.8 mmol/L (3.5-5.1)
[2024-11-26 22:44] LABS: MAGNESIUM 1.9 mg/dL (1.80-2.40)
[2024-11-26] MEDS: LACTATED RINGERS 1000ML 1,000 ML IV ONE (22:56)
--- NOTE | 2024-11-26 23:00 | NUR ---
TRANSFERED CARE TO [facility] AT THIS TIME
--- NOTE | 2024-11-26 23:44 | HMCIMG ---
EXAM: CR Chest, 1 View. CLINICAL HISTORY: Chest Pain COMPARISON: None provided. FINDINGS: LUNGS: There is no mass, infiltrate, or acute pulmonary abnormality. PLEURAL SPACES: No pleural effusion or pneumothorax. MEDIASTINUM: Mild cardiomegaly. Status poststernotomy. Stable left-sided AICD device with lead in place. BONES: No aggressively appearing osseous lesion. IMPRESSION: No acute infiltrate. Mild cardiomegaly. /[facility]
--- NOTE | 2024-11-26 23:46 | HP ---
[facility] HISTORY AND PHYSICAL Date of Service: Nov 26, 2024 Time of Service: 23:45 PCP: Lena Olmedo HISTORY OF PRESENT ILLNESS: This is a 54-year-old patient with past medical history of Diabetes type 2,Hyperlipidemia,Hypertension osteoarthritis and CAD with CABG x2 and Defibrillator placement who presented to the Ed for complaints of chest pain,which she described as chest pressure l;ocated around midsternal associated with nausea ,faitgue and shortness of breath started today.Patient had an echocardiogram done at [facility] on 11/10/2024 and her EF was only 20% she said.Patient reports she was seen by 2 weeks ago and was told that she might need to have cardiac stent. Seen and examined patient in the ER awake,alert and coherent,appears weak looking,continue to complain of chest pain 5/10 pain level.Patient denies fever,chills,cough,palpitation,vomiting and abdominal pain . Latest vital signs temperature 98.2, heart rate 84, blood pressure 117/61 saturation 98% on room air. Labs: WBC 4.5, hemoglobin 10.8, hematocrit 33, platelet count 180. BUN 35, creatinine 0.7, GFR 101, glucose 159 troponin 13 and 15. Urinalysis significant for glucose the rest are unremarkable. Chest x-ray result revealed no acute infiltrate mild cardiomegaly. ECG result revealed sinus rhythm heart rate 81 probable left atrial enlargement, inferior infarct old. Probable anterolateral infarct age indeterminate. While in the ER patient received LR 1 L bolus. We will admit patient for further medical management. REVIEW OF SYSTEMS CONSTITUTIONAL: Denies fevers, chills, or night sweats. No unintentional weight loss reported. NEUROLOGICAL: Patient complains of generalized body weakness and fatigue Denies headache, amaurosis fugax,sensory deficit, vertigo/spinning sensation, gait abnormalities, or tremors. ENT: No hearing loss, otalgia, otorrhea, rhinitis, rhinorrhea, hoarseness, or sore throat. CARDIOVASCULAR: Patient complained of chest pain and dyspnea on exertion Denies orthopnea, paroxysmal nocturnal dyspnea, palpitations, life-threatening arrhythmias, claudication. PULMONARY: Patient complains of shortness of breaths Denies cough, phlegm/sputum, hemoptysis, pleuritic chest pain. SLEEP: Denies morning headaches, daytime somnolence or napping. Denies difficulty falling asleep, staying asleep, waking from sleep. Denies knowledge of snoring. GASTROINTESTINAL: Patient complains of nausea Denies any type of dysphagia to either liquids or solids. Denies vomiting, pyrosis, early satiety, abdominal pain, diarrhea, constipation, or changes in stool consistency or caliber. Denies coffee-ground emesis, hematemesis, hematochezia, or melanotic stools. GENITOURINARY: Denies frequency, urgency, nocturia, hematuria or incontinence (Storage/Irritative symptoms.) Low urinary stream, straining to void, urinary intermittency or hesitancy, splitting of the voiding stream, terminal dribbling. ENDOCRINOLOGIC: Denies polyuria, polydipsia, polyphagia or heat/cold intolerances. HEMATOLOGIC: Denies thrombophilia/previous clots, or coagulopathy/bleeding disorders. ONCOLOGIC: Denies personal history of malignancy. DERMATOLOGIC: Denies rashes or pruritus. PSYCHIATRIC: Denies any suicidal or homicidal ideation. Denies hallucinations. PAST MEDICAL HISTORY: [ Diabetes type 2,Hyperlipidemia,Hypertension osteoarthritis and CAD ] PAST SURGICAL HISTORY: [ CABG x2 ,Defibrillator placement,cholecystectomy and x2] PAST SOCIAL HISTORY: [ Maria Antonia lives with Feliciano Aguirre .Patient denies cigarette,alcohol and recreational drug use.] FAMILY HISTORY: [ Hypertension, diabetes, stroke an immuno compromised state ] Coded Allergies: No Known Allergies (Unverified Allergy, Unknown, 02/24/24) PHYSICAL EXAM GENERAL APPEARANCE: The patient is awake, alert, and oriented, in no acute cardiopulmonary distress. NEUROLOGICAL: Cranial nerves II-XII grossly intact. Motor is 5/5 in bilateral upper and lower extremities proximal to distal. No sensory deficits. HEENT: Face is symmetric. Pupils are equal and reactive. Extraocular movements are intact. NECK: Supple. No JVD. No thyromegaly. No submental, submandibular, pre- /postauricular, occipital or supraclavicular lymphadenopathy. CHEST: Normal chest expansion. No Telemetry. LUNGS: Absence of any rales, rhonchi or any wheezing. CARDIOVASCULAR: Regular. S1 and S2 normal. No appreciable rubs, murmurs or gallops. ABDOMEN: Soft, nontender, and nondistended. There is no rebound, voluntary guarding, or rigidity. : Deferred. No Rodrigez. EXTREMITIES: Non-edematous and not cyanotic. No clubbing. Good capillary refill. SKIN: No skin breakdown. Vital Sign (Last 24 Hours) 11/26/24 11/26/24 22:23 23:18 Temp 98.2 Pulse 84 Resp 16 B/P (MAP) 117/61 Pulse Ox 98 O2 Delivery Room Air* O2 Flow Rate 0 FiO2 21 LABS: Laboratory: Test 11/26/24 22:17 Range/Units White Blood Count 4.5 L 4.8-10.8 K/uL Red Blood Count 3.61 L 4.00-5.50 MIL/uL Hemoglobin 10.8 L 12.0-16.0 g/dL Hematocrit 33.3 L 36-48 % Mean Corpuscular Volume 92.2 79-99 fL Mean Corpuscular Hemoglobin 29.9 27.0-33.0 pg Mean Corpuscular Hemoglobin Concent 32.4 32.0-36.0 g/dL Red Cell Distribution Width 13.8 11.0-15.5 % Platelet Count 180 130-400 K/uL Mean Platelet Volume 10.8 H 7.5-10.5 fL Immature Granulocyte % (Auto) 0.2 0-1 % Neutrophils (%) (Auto) 43.8 40.0-77.0 % Lymphocytes (%) (Auto) 43.5 21.0-51.0 % Monocytes (%) (Auto) 9.8 3.0-13.0 % Eosinophils (%) (Auto) 1.6 0.0-8.0 % Basophils (%) (Auto) 1.1 0.0-5.0 % Neutrophils # (Auto) 2.0 1.8-7.7 K/uL Lymphocytes # (Auto) 2.0 1.0-4.8 K/uL Monocytes # (Auto) 0.4 0.1-1.0 K/uL Eosinophils # (Auto) 0.07 0.00-0.70 K/uL Basophils # (Auto) 0.05 0.00-0.20 K/uL Absolute Immature Granulocyte (auto 0.01 0-1 K/uL Nucleated Red Blood Cells 0.0 0.0-0.19 % Sodium Level 142 136-145 mmol/L Potassium Level 3.8 3.5-5.1 mmol/L Chloride Level 104 101-111 mmol/L Carbon Dioxide Level 26 21-32 mmol/L Blood Urea Nitrogen 35 H 7-18 mg/dL Creatinine 0.7 0.5-1.0 mg/dL Glomerular Filtration Rate Calc 101 >90 mL/min Random Glucose 159 H 70-105 mg/dL Total Calcium 8.8 8.5-10.1 mg/dL Magnesium Level 1.90 1.80-2.40 mg/dL Total Creatine Kinase 112 # 21-232 U/L Troponin I High Sensitivity 13 4-50 ng/L DIAGNOSTICS / RADIOLOGY: [ ] ASSESSMENT: Chest pain rule out ACS POA Chronic anemia POA Uncontrolled diabetes POA Hypertension POA Hyperlipidemia POA Coronary artery disease with CABG x2 and defibrillator placement POA PLAN: We will admit patient in medical telemetry We will start on heart healthy diet We will start on aspirin 81 mg p.o. daily We will start on atorvastatin 20 mg p.o. daily We will start on Plavix 75 mg p.o. daily Patient received 1 L LR bolus in the ER We will start on Famotidine 20 mg IV bid for GI prophylaxis We will replace electrolytes as needed per protocol We will start on insulin sliding scale AC & HS with hypoglycemia protocol We will add prn medication for fever,pain,cough , nausea, vomiting and chest pain We will reconcile home meds once medlist available We will seek Cardiology consultation We will trend troponin q.6 x3 We will check fecal occult blood x1 We will request labs in am Further orders to follow depending on above results Case discussed with attending physician and came up with above treatment and plan of care. ADVANCED CARE PLANNING 1. Which of the following were discussed? Hospice Care - No Therapeutic options - Yes Advance Directives - No Other discussions - 2. Discussed with who? Patient and Feliciano Aguirre 3. Voluntary nature of this service was explained to the patient? Yes 4. Amount of time spent - ___23____ 5. Reviewed by Physician? (if this service was performed by NPP) Yes Patient seen and examined by me. Agree with note by FOOD COUNTER ATTENDANT SEE ADDITIONAL ORDERS PER CHART DISCUSSED WITH NURSING STAFF YISSEL VÁSQUEZ WEATHERSEAL TECHNICIAN Nov 26, 2024 23:46
[2024-11-26 23:58] LABS: ADD UA MICROSCOPIC YES; APPEARANCE,URINE CLEAR (CLEAR); BILIRUBIN,URINE NEGATIVE (NEGATIVE); COLOR,URINE COLORLESS (YELLOW); GLUCOSE, URINE (UA) >=1000 mg/dL (NEGATIVE); KETONES,URINE NEGATIVE (NEGATIVE); LEUKOCYTE ESTERASE ,URINE NEGATIVE Leu/uL (NEGATIVE); NITRATE,URINE NEGATIVE (NEGATIVE); OCCULT BLOOD,URINE NEGATIVE (NEGATIVE); PH,URINE 5.5 (5.0-8.0); PROTEIN,URINE NEGATIVE (NEGATIVE); UROBILINOGEN,URINE 0.2 mg/dL (0.2-1.0)
[2024-11-26 23:59] LABS: RBC,URINE 0-1 /HPF (0-1); SQUAMOUS EPITHELIAL CELL,UR RARE /HPF (0-2); WBC,URINE 0-1 /HPF (0-1)
[2024-11-27] VITALS (13 sets, daily range): BP systolic 90–110; BP diastolic 51–88; PULSE 73–80; RESP 18–19; TEMP 97.8–98.7; O2SAT 98
[2024-11-27] MEDS ORDERED: NITROGLYCERIN 0.4 MG SL TAB SL PRN
[2024-11-27] MEDS ORDERED: ondanSETRON 4MG INJ IV PRN
[2024-11-27] MEDS ORDERED: acetaMINOPHEN 325 MG TAB PO PRN
[2024-11-27] MEDS ORDERED: GLUCAGON 1MG KIT 1 MG ML IM PRN (01:00)
[2024-11-27] MEDS ORDERED: PoTASSium chloRIDE 20MEQ/100ML 100 ML IV PRN (01:00)
[2024-11-27] MEDS ORDERED: DEXTROSE 50%-WATER 50 ML DISP.SYRIN IV PRN (01:00)
[2024-11-27] MEDS ORDERED: PoTASSium chl 10% ELIXIR 20MEQ 20 MEQ/15 ML UDCUP PO PRN (01:00)
[2024-11-27] MEDS ORDERED: MAGNESIUM 2GM PREMIX 50ML 50 ML IV PRN (01:00)
[2024-11-27] MEDS: NITROGLYCERIN 1GM OINT 1 INCH/1GM TD ONE (01:01)
[2024-11-27] MEDS: acetaMINOPHEN 325 MG TAB PO PRN (01:22)
[2024-11-27 01:46] LABS: HEMOGLOBIN A1C 6.9 % (4.0-6.0)
[2024-11-27 04:17] LABS: BASOPHILS # (AUTO) 0.04 K/uL (0.00-0.20); BASOPHILS % (AUTO) 0.9 % (0.0-5.0); EOSINOPHILS # (AUTO) 0.07 K/uL (0.00-0.70); EOSINOPHILS % (AUTO) 1.6 % (0.0-8.0); LYMPHOCYTES # (AUTO) 1.8 K/uL (1.0-4.8); LYMPHOCYTES % (AUTO) 41.5 % (21.0-51.0); MEAN CORPUSCULAR HEMOGLOBIN 30.1 pg (27.0-33.0); MEAN CORPUSCULAR HGB CONC 32.3 g/dL (32.0-36.0); MEAN CORPUSCULAR VOLUME 93.2 fL (79-99); MONOCYTES # (AUTO) 0.4 K/uL (0.1-1.0); MONOCYTES % (AUTO) 8.9 % (3.0-13.0); NEUTROPHILS % (AUTO) 47.1 % (40.0-77.0); PLATELET COUNT (AUTO) 171 K/uL (130-400); RED BLOOD CELL COUNT(AUTO) 3.22 MIL/uL (4.00-5.50); RED CELL DISTRIBUTION WIDTH 13.9 % (11.0-15.5); WHITE BLOOD COUNT (AUTO) 4.3 K/uL (4.8-10.8)
[2024-11-27 04:38] LABS: B-TYPE NATRIURETIC PEPTIDE 207 pg/mL (0-100)
[2024-11-27 04:41] LABS: % IRON SATURATION 15.2 % (22-44)
[2024-11-27 04:47] LABS: ALBUMIN 3.5 g/dL (3.5-5.0); BILIRUBIN,TOTAL 0.1 mg/dL (0.2-1.0); CREATININE 0.6 mg/dL (0.5-1.0); POTASSIUM 3.7 mmol/L (3.5-5.1); THYROID STIMULATING HORMONE 3.03 uIU/mL (0.36-3.74); TOTAL PROTEIN, SERUM 6.8 g/dL (6.0-8.3)
[2024-11-27] MEDS: PoTASSium chloRIDE 20MEQ ER 20 MEQ ERTAB PO PRN (05:12)
[2024-11-27] MEDS: INSULIN humuLIN R 100 UNIT/ML 3ML SQ SCH (05:13)
--- NOTE | 2024-11-27 06:47 | EKG ---
[facility] Test Date: 2024-11-26 Test Time: 21:55:05 Pat Name: VALENTE WILSON Department: [facility] Room: 413 1 Gender: F Hand Inspector: [id number] : 1970 Requested By: MARITZA NEGRON Order Number: [id number] Reading MD: Jf Arcos Measurements Intervals [place] Rate: 81 P: 48 [place]: 149 QRS: -43 QRSD: 93 T: 133 QT: 380 QTc: 441 Interpretive Statements Sinus rhythm Probable left atrial enlargement Inferior infarct, old Probable anterolateral infarct, age indeterm Compared to ECG 02/26/2024 05:43:52 Sinus tachycardia no longer present Myocardial infarct finding still present Electronically Signed On 11-27-2024 21:39:05 CDT by Jf Arcos Please click the below link to view image of tracing.
[2024-11-27] MEDS ORDERED: 0.9% NACL 500ML IV.SOLN 500 ML IV SCH (07:30)
--- NOTE | 2024-11-27 07:57 | CONS ---
[facility] Cardiology Consultation Note Cardiology consult dictated for Cuate Vora MD Date of service 11/27/2024 Chief complaint: Chest pain Primary office helper clerical: Dr. Cuate Vora History of present illness: This is a 54-year-old female patient of Dr. Cuate Vora presented for evaluation of chest pain. Pain is substernal associated with nausea, fatigue and shortness of breath. She was seen at [facility] two weeks ago has a history of coronary artery bypass grafting December of 2023 status post MARSHALL to the LAD and SVG to the RCA. While she was in the office she reported shortness of breath with little exertion and last echocardiogram demonstrated left ventricular ejection fraction 20-24% October of 2024. She had hypokinesis of the basal anteroseptal wall. Akinesis of the mid apical anteroseptal, anterior, anterolateral, inferior lateral and inferior septal wood with a grade 2 diastolic dysfunction and mild mitral regurgitation. Last left heart catheterization was April of 2024 demonstrated normal left main, lad with proximal lesion of 50% stenosis, circumflex was a nondominant vessel, no significant disease was except for proximal lesion 60% in 90 degree angle from the left main. RCA was a dominant vessel, no significant lesion. The MARSHALL to the LAD was patent but did not mature completely. Circumflex with no palpable sounds and vein graft to RCA was occluded. Troponin on presentation 16 with a BNP of 207. Chest x-ray mild cardiomegaly and no acute infiltrates. Twelve lead EKG demonstrated inferior infarct of indeterminate age with a probable anterolateral infarct sinus rhythm heart rate of 81 beats per minute and no acute findings. Currently the patient is resting comfortably with no recurrence of symptoms. Past medical history: Positive for CAD cardiomyopathy, diabetes mellitus type 2, dyslipidemia. Negative for CVA TIA no PE no DVT no liver kidney or thyroid disease Review of systems: 14 point review of systems performed pertinent positives and negatives discussed in HPI Past surgical history: Positive for cholecystectomy, coronary artery bypass grafting 2023 with MARSHALL to the LAD and SVG to RCA history of sections and a Medtronic ICD implant May 02, [address] Rose in [place] Social history: Patient lives with denies tobacco alcohol or illicit drug use Allergies: No known allergies Family history: Noncontributory Blood work results basic metabolic panel with a sodium of 142, potassium 3.8, BUN of 35 creatinine of 0.7 GFR of 101 magnesium of 1.90, troponin high sensitivity of 15 followed by 16 with a BNP of 207. CBC with hemoglobin of 9.7 hematocrit of 30 platelets of 171 white blood cells of 4.3. Current medications: Atorvastatin at HS, clopidogrel 75 mg daily, potassium and magnesium supplement PRN. Physical assessment: Blood pressure 90/54 heart rate of 80 beats per minute and regular normal S1-S2 no rubs gallops murmurs noted. Neck is supple no jugular vein distention no carotid bruits. Bilateral breath sounds are clear to auscultation. Radial pulses strong and symmetrical. Lower extremities no edema no cyanosis. Patient is alert awake and oriented. Assessment: Chest pain Ischemic cardiomyopathy 2D echocardiogram October of 2024 left ventricular ejection fraction 20-24%, grade 3 diastolic dysfunction Left heart catheterization May 01, 2024 proximal lesion to LAD 50% stenosis, circumflex nondominant proximal lesion 60% and a 90 degree angle from the left main. Marshall to LAD patent but did not mature completely, vein graft to RCA occluded. Medtronic ICD implant May 02, [address] Rose Coronary artery disease coronary artery bypass grafting x2 December [address] Stein (marshall to the LAD, SVG to RCA) Diabetes mellitus type 2 Dyslipidemia Plan: 54-year-old female presented for evaluation of chest pain. She has a history of bypass surgery in 2023 and ischemic cardiomyopathy with last ejection fraction this month as an outpatient 20-24% and a grade 3 diastolic dysfunction. She has ruled out for ACS. Options were discussed and she has a grade to proceed with left heart catheterization. Risks and benefits and possible outcomes were discussed with the patient and she understood fully. We we will provide a clear liquid diet and proceed with left heart catheterization later today. CRISSY MONTOYA [facility] Nov 27, 2024 07:57
[2024-11-27 08:19] LABS: INR 0.94 (0.85-1.15)
[2024-11-27 08:20] LABS: PARTIAL THROMBOPLASTIN TIME 27.1 SEC (26.3-35.5)
[2024-11-27] MEDS: cloPIDOgrel 75MG TAB PO SCH (09:14)
[2024-11-27] MEDS: FAMOTIDINE 20MG VIAL IV SCH (09:14)
--- NOTE | 2024-11-27 11:24 | NUR ---
DCP: HOME Pt currently lives with sps Feliciano Amoso [phone]. Pt does not report any insecurities with food, residential, and/or utilities. Pt does have a walker at home that she uses. Pt does not have home health or provider services. Pt states that she does need assistance to complete ADLs and sps tends to help. PCP is Honorio Conrad and uses [facility] for any RX needs. At dc pt will go home and family can assist with transportation. Addendum: 11/27/24 at 1130 by CAROLYNN PARKER SS Amended: Links added.
[2024-11-27] MEDS ORDERED: MIDAZOLAM HCL 1 MG/ML 2ML VIAL ONE (14:12)
[2024-11-27] MEDS ORDERED: LIDOCAINE HCL 400MG/20ML VIAL ONE (14:12)
[2024-11-27] MEDS ORDERED: IOHEXOL-350 50ML VIAL IV ONE (14:12)
[2024-11-27] MEDS ORDERED: HEParin-NS 1,000 UNIT/500 ML 1,000 ML IV ONE (14:12)
--- NOTE | 2024-11-27 15:11 | PN ---
[facility] PROGRESS NOTE Date of Service: Nov 27, 2024 Time of Service: 14:55 SUBJECTIVE: This is a 54-year-old patient with past medical history of Diabetes type 2,Hyperlipidemia,Hypertension osteoarthritis and CAD with CABG x2 and Defibrillator placement who presented to the Ed for complaints of chest pain,which she described as chest pressure l;ocated around midsternal associated with nausea ,faitgue and shortness of breath started today.Patient had an echocardiogram done at [facility] on 11/10/2024 and her EF was only 20% she said.Patient reports she was seen by 2 weeks ago and was told that she might need to have cardiac stent. Seen and examined patient in the ER awake,alert and coherent,appears weak looking,continue to complain of chest pain 5/10 pain level.Patient denies fever,chills,cough,palpitation,vomiting and abdominal pain . Latest vital signs temperature 98.2, heart rate 84, blood pressure 117/61 saturation 98% on room air. Labs: WBC 4.5, hemoglobin 10.8, hematocrit 33, platelet count 180. BUN 35, creatinine 0.7, GFR 101, glucose 159 troponin 13 and 15. Urinalysis significant for glucose the rest are unremarkable. Chest x-ray result revealed no acute infiltrate mild cardiomegaly. ECG result revealed sinus rhythm heart rate 81 probable left atrial enlargement, inferior infarct old. Probable anterolateral infarct age indeterminate. While in the ER patient received LR 1 L bolus. We will admit patient for further medical management. 11/27/2024 - patient seen at bedside in room 413. Patient is currently hemodynamically stable with temperature 98.8, pulse 78, blood pressure 105/66, respiratory rate 19, saturating at 97% on room air. Patient's chest x-ray is unremarkable except mild cardiomegaly. Patient's pain is reproducible on palpation and the substernal pain comes with deep breaths and coughing. Awaiting left heart catheterization report and further recommendations from Cardiology. We will monitor the patient closely REVIEW OF SYSTEMS CONSTITUTIONAL: Denies fevers, chills, or night sweats. No unintentional weight loss reported. NEUROLOGICAL: Patient complains of generalized body weakness and fatigue Denies headache, amaurosis fugax,sensory deficit, vertigo/spinning sensation, gait abnormalities, or tremors. ENT: No hearing loss, otalgia, otorrhea, rhinitis, rhinorrhea, hoarseness, or sore throat. CARDIOVASCULAR: Patient complained of chest pain and dyspnea on exertion Denies orthopnea, paroxysmal nocturnal dyspnea, palpitations, life-threatening arrhythmias, claudication. PULMONARY: Patient complains of shortness of breaths Denies cough, phlegm/sputum, hemoptysis, pleuritic chest pain. SLEEP: Denies morning headaches, daytime somnolence or napping. Denies difficulty falling asleep, staying asleep, waking from sleep. Denies knowledge of snoring. GASTROINTESTINAL: Patient complains of nausea Denies any type of dysphagia to either liquids or solids. Denies vomiting, pyrosis, early satiety, abdominal pain, diarrhea, constipation, or changes in stool consistency or caliber. Denies coffee-ground emesis, hematemesis, hematochezia, or melanotic stools. GENITOURINARY: Denies frequency, urgency, nocturia, hematuria or incontinence (Storage/Irritative symptoms.) Low urinary stream, straining to void, urinary intermittency or hesitancy, splitting of the voiding stream, terminal dribbling. ENDOCRINOLOGIC: Denies polyuria, polydipsia, polyphagia or heat/cold intolerances. HEMATOLOGIC: Denies thrombophilia/previous clots, or coagulopathy/bleeding disorders. ONCOLOGIC: Denies personal history of malignancy. DERMATOLOGIC: Denies rashes or pruritus. PSYCHIATRIC: Denies any suicidal or homicidal ideation. Denies hallucinations. PHYSICAL EXAM GENERAL APPEARANCE: The patient is awake, alert, and oriented, in no acute cardiopulmonary distress. NEUROLOGICAL: Cranial nerves II-XII grossly intact. Motor is 5/5 in bilateral upper and lower extremities proximal to distal. No sensory deficits. HEENT: Face is symmetric. Pupils are equal and reactive. Extraocular movements are intact. NECK: Supple. No JVD. No thyromegaly. No submental, submandibular, pre- /postauricular, occipital or supraclavicular lymphadenopathy. CHEST: Normal chest expansion. No Telemetry. LUNGS: Absence of any rales, rhonchi or any wheezing. CARDIOVASCULAR: Regular. S1 and S2 normal. No appreciable rubs, murmurs or gallops. ABDOMEN: Soft, nontender, and nondistended. There is no rebound, voluntary guarding, or rigidity. : Deferred. No Rodrigez. EXTREMITIES: Non-edematous and not cyanotic. No clubbing. Good capillary refill. SKIN: No skin breakdown. Vital Signs (last 8hr) Date Time Temp Pulse Resp B/P (MAP) Pulse Ox O2 Delivery O2 Flow Rate FiO2 11/27/24 12:33 98.8 78 19 105/66 97 Room Air 11/27/24 09:02 98 Room Air* 0 21 11/27/24 08:23 97.9 75 19 91/51 98 Room Air LABS: Laboratory: Test 11/27/24 10:43 11/27/24 08:00 11/27/24 04:07 11/26/24 23:46 Range/Units Whole Blood Glucose 173 H 70-110 MG/DL Prothrombin Time 10.0 9.6-11.6 SEC Prothromb Time International Ratio 0.94 0.85-1.15 Activated Partial Thromboplast Time 27.1 26.3-35.5 SEC Troponin I High Sensitivity 12 4-50 ng/L White Blood Count 4.3 L 4.8-10.8 K/uL Red Blood Count 3.22 L 4.00-5.50 MIL/uL Hemoglobin 9.7 L 12.0-16.0 g/dL Hematocrit 30.0 L 36-48 % Mean Corpuscular Volume 93.2 79-99 fL Mean Corpuscular Hemoglobin 30.1 27.0-33.0 pg Mean Corpuscular Hemoglobin Concent 32.3 32.0-36.0 g/dL Red Cell Distribution Width 13.9 11.0-15.5 % Platelet Count 171 130-400 K/uL Mean Platelet Volume 11.1 H 7.5-10.5 fL Immature Granulocyte % (Auto) 0.0 0-1 % Neutrophils (%) (Auto) 47.1 40.0-77.0 % Lymphocytes (%) (Auto) 41.5 21.0-51.0 % Monocytes (%) (Auto) 8.9 3.0-13.0 % Eosinophils (%) (Auto) 1.6 0.0-8.0 % Basophils (%) (Auto) 0.9 0.0-5.0 % Neutrophils # (Auto) 2.0 1.8-7.7 K/uL Lymphocytes # (Auto) 1.8 1.0-4.8 K/uL Monocytes # (Auto) 0.4 0.1-1.0 K/uL Eosinophils # (Auto) 0.07 0.00-0.70 K/uL Basophils # (Auto) 0.04 0.00-0.20 K/uL Absolute Immature Granulocyte (auto 0.00 0-1 K/uL Nucleated Red Blood Cells 0.0 0.0-0.19 % Sodium Level 142 136-145 mmol/L Potassium Level 3.7 3.5-5.1 mmol/L Chloride Level 107 101-111 mmol/L Carbon Dioxide Level 26 21-32 mmol/L Blood Urea Nitrogen 31 H 7-18 mg/dL Creatinine 0.6 0.5-1.0 mg/dL Glomerular Filtration Rate Calc 105 >90 mL/min Random Glucose 198 H 70-105 mg/dL Total Calcium 8.7 8.5-10.1 mg/dL Magnesium Level 2.00 1.80-2.40 mg/dL Iron Level 45 L 50-170 mcg/dL Total Iron Binding Capacity 296 250-450 mcg/dL Percent Iron Saturation 15.2 L 22-44 % Total Bilirubin 0.1 L 0.2-1.0 mg/dL Aspartate Amino Transf (AST/SGOT) 17 10-37 U/L Alanine Aminotransferase (ALT/SGPT) 25 12-78 U/L Alkaline Phosphatase 124 50-136 U/L B-Type Natriuretic Peptide 207 H 0-100 pg/mL Total Protein 6.8 6.0-8.3 g/dL Albumin 3.5 3.5-5.0 g/dL Triglycerides Level 86 30-200 mg/dL Cholesterol Level 87 # <200 mg/dL LDL Cholesterol 36 0-99 mg/dL HDL Cholesterol 43 35-85 mg/dL Thyroid Stimulating Hormone (TSH) 3.03 # 0.36-3.74 uIU/mL Urine Color COLORLESS YELLOW Urine Appearance CLEAR CLEAR Urine pH 5.5 5.0-8.0 Urine Specific [place] 1.035 H 1.001-1.031 Urine Protein NEGATIVE NEGATIVE mg/dL Urine Glucose (UA) >=1000 H NEGATIVE mg/dL Urine Ketones NEGATIVE NEGATIVE mg/dL Urine Occult Blood NEGATIVE NEGATIVE Urine Nitrate NEGATIVE NEGATIVE Urine Bilirubin NEGATIVE NEGATIVE mg/dL Urine Urobilinogen 0.2 0.2-1.0 mg/dL Urine Leukocyte Esterase NEGATIVE NEGATIVE [place]/uL Urine RBC 0-1 0-1 /HPF Urine WBC 0-1 0-1 /HPF Urine Squamous Epithelial Cells RARE 0-2 /HPF Urine Bacteria None None Seen /HPF Test 11/26/24 22:17 Range/Units Hemoglobin A1c 6.9 H 4.0-6.0 % Estimated Average Glucose (eAG) 151 H 70-126 mg/dL Total Creatine Kinase 112 # 21-232 U/L Current Medications Medications (Trade) Dose Ordered Sig/Mundo Route PRN Reason Start Time Stop Time Status Last Admin Dose Admin Acetaminophen (TYLenol 325MG TAB) 650 mg Q4H PRN PO MILD PAIN (1-3) 11/27/24 00:00 12/27/24 00:00 11/27/24 01:22 650 MG Acetaminophen (TYLenol 325MG TAB) 650 mg Q6H PRN PO TEMPERATURE GREATER THAN 101.5 11/27/24 00:00 12/27/24 00:00 Atorvastatin Calcium (LIPItor 20MG) 20 mg HS PO 11/27/24 21:00 12/27/24 20:59 Clopidogrel Bisulfate (plaVIX 75MG) 75 mg DAILY PO 11/27/24 09:00 12/27/24 08:59 11/27/24 09:14 75 MG Dextrose (D50w) 50 ml AD PRN IV HYPOGLYCEMIA PROTOCOL 11/27/24 01:00 12/27/24 00:59 Famotidine (Pepcid 20mg Vial) 20 mg BID IV 11/27/24 09:00 12/27/24 08:59 11/27/24 09:14 20 MG Glucagon (Glucagon 1mg Kit) 1 mg AD PRN IM HYPOGLYCEMIA PROTOCOL 11/27/24 01:00 12/27/24 00:59 Insulin Human Regular (humuLIN R 100 UNIT/ML 3ML) INSULIN SLIDING SCAL... ACHS SQ 11/27/24 07:30 12/27/24 07:29 Magnesium Sulfate 50 ml @ 0 mls/hr PROTOCOL PRN IV OTHER [SEE ORDER COMMENTS] 11/27/24 01:00 12/27/24 00:59 Morphine Sulfate (morPHINE 2MG SYG) 2 mg Q4H PRN IVP SEVERE PAIN (7-10) 11/27/24 00:00 12/04/24 00:00 Nitroglycerin (Nitrostat) 0.4 mg PROTOCOL PRN SL CHEST PAIN 11/27/24 00:00 12/27/24 00:00 Ondansetron HCl (zoFRAN 4MG INJ) 4 mg Q6H PRN IV NAUSEA/VOMITING 11/27/24 00:00 12/27/24 00:00 Potassium Chloride 100 ml @ 100 mls/hr AD PRN IV POTASSIUM PROTOCOL 11/27/24 01:00 12/27/24 00:59 Potassium Chloride (K-Dur/Klor-Con 20meq) 20 meq AD PRN PO POTASSIUM PROTOCOL 11/27/24 01:00 12/27/24 00:59 11/27/24 05:12 20 MEQ Potassium Chloride (KCl 10% Elixir 20meq/15ml) 20 meq AD PRN PO POTASSIUM PROTOCOL 11/27/24 01:00 12/27/24 00:59 Sodium Chloride 500 ml @ 0 mls/hr Q0M IV 11/27/24 07:30 12/27/24 07:29 DIAGNOSTICS / RADIOLOGY: [ ] ASSESSMENT: Chest pain rule out ACS POA Chronic anemia POA Uncontrolled diabetes POA Hypertension POA Hyperlipidemia POA Coronary artery disease with CABG x2 and defibrillator placement POA Reproducible chest pain POA possible costochondritis PLAN: Chest pain rule out ACS, hypertension, hyperlipidemia, history of cardiac disease We will admit patient in medical telemetry We will start on heart healthy diet We will start on aspirin 81 mg p.o. daily We will start on atorvastatin 20 mg p.o. daily We will start on Plavix 75 mg p.o. daily We will follow cardiology recommendations Follow up with left heart catheterization procedure report We will reconcile home meds once medlist available uncontrolled diabetes mellitus We will start on insulin sliding scale AC & HS with hypoglycemia protocol Start Lantus 5 units HS We will add prn medication for fever,pain,cough , nausea, vomiting and chest pain We will start on Famotidine 20 mg IV bid for GI prophylaxis We will replace electrolytes as needed per protocol We will request labs in am monitor the patient closely ATTESTATION BY PHYSICIAN I have seen and examined the patient. I reviewed the documentation, medical decision making, and treatment plan as noted by the resident provider above. I agree with the findings and plan of care. Jose Reddy MD, KEERTI K MD Nov 27, 2024 15:11
--- NOTE | 2024-11-27 15:17 | PRN ---
Cath Procedure Report CATH PROCEDURE REPORT CARDIAC CATHETERIZATION REPORT Date of Service: Nov 27, 2024 After informed consent the patient was prepped and draped in the usual fashion. She received 1 mg of Versed for conscious sedation. She received 15 cc of xylocaine in the right inguinal area subcutaneously. A six [place]yan sheath was introduced into the right femoral artery using modified Seldinger technique. A Aimee four left six Kenyan diagnostic catheter was advanced over guidewire to the aortic root wire was removed and the catheter was engaged into the left main coronary artery. The left coronary system was visualized multiple planes the catheter was removed. A Aimee right six Kenyan diagnostic catheter was then advanced over guidewire to the aortic root wire was removed and catheter engaged into the redding right coronary artery which was visualized multiple planes. The catheter was then manipulated to the origin of the saphenous graft to the right coronary artery which was visualized and then to the MARSHALL graft to the LAD which was visualized. The catheter was removed and a pigtail catheter was advanced over guidewire across the aortic valve. Wire was removed and hemodynamics measured. Because of an elevated left ventricular end-diastolic pressure of 33 mm Hg no ventriculogram was performed. A pullback with continuous hemodynamic monitoring was performed and catheter was removed. A sheathogram performed and six Kenyan angio Seal closure device applied. The entire procedure was well tolerated without complications. Findings: [place] right coronary artery has a 50-60% mid RCA stenosis. Remainder of the vessel is free of obstruction gives rise to normal PDA and posterolateral branch. The saphenous graft to the right coronary artery is occluded. The left main coronary artery is free of obstruction. The circumflex artery has a distal 60-70% stenosis. It gives rise to two large obtuse marginal artery which are free of obstruction. The left anterior descending artery is totally occluded after the 1st septal piece dye worker and diagonal artery. The MARSHALL graft to the LAD is occluded. The diagonal artery is free of obstruction. Previous ejection fraction by echo was 20%. There was no aortic stenosis. Summary: Occluded vein graft and MARSHALL graft with a occluded redding LAD medical management advised. The patient may benefit from upgrade of her defibrillator to a biventricular device and/or CMT therapy. Report dictated by JUANY Morgan MD, MD Nov 27, 2024 15:17
--- NOTE | 2024-11-27 15:45 | NUR ---
PT RETURNED FROM [facility]YSIC[facility] PT IS LAYIN FLAT ON THE BED. R. FEMORAL PUNCTURE SITE SECURED WITH 4X4 AND TEGADERM. NO S/S OF BLEEDING. VS: 98/58, 74 HR, 96 SP02 ON RA. PT VERBALIZES FEELING WELL. BLE PULSES PRESENT BUT WEAK.
--- NOTE | 2024-11-27 16:26 | DS ---
Discharge Summary Hospital Course Summary: This is a 54-year-old patient with past medical history of Diabetes type 2,Hyperlipidemia,Hypertension osteoarthritis and CAD with CABG x2 and Defibrillator placement who presented to the Ed for complaints of chest pain,which she described as chest pressure l;ocated around midsternal associated with nausea ,faitgue and shortness of breath started today.Patient had an echocardiogram done at [facility] on 11/10/2024 and her EF was only 20% she said.Patient reports she was seen by 2 weeks ago and was told that she might need to have cardiac stent. Seen and examined patient in the ER awake,alert and coherent,appears weak looking,continue to complain of chest pain 5/10 pain level.Patient denies fever,chills,cough,palpitation,vomiting and abdominal pain . Latest vital signs temperature 98.2, heart rate 84, blood pressure 117/61 saturation 98% on room air. Labs: WBC 4.5, hemoglobin 10.8, hematocrit 33, platelet count 180. BUN 35, creatinine 0.7, GFR 101, glucose 159 troponin 13 and 15. Urinalysis significant for glucose the rest are unremarkable. Chest x-ray result revealed no acute infiltrate mild cardiomegaly. ECG result revealed sinus rhythm heart rate 81 probable left atrial enlargement, inferior infarct old. Probable anterolateral infarct age indeterminate. While in the ER patient received LR 1 L bolus. We will admit patient for further medical management. 11/27/2024 - patient seen at bedside in room 413. Patient is currently hemodynamically stable with temperature 98.8, pulse 78, blood pressure 105/66, respiratory rate 19, saturating at 97% on room air. Patient's chest x-ray is unremarkable except mild cardiomegaly. Patient's pain is reproducible on p alpation and the substernal pain comes with deep breaths and coughing. Left heart catheterization Findings: [place] right coronary artery has a 50-60% mid RCA stenosis. Remainder of the vessel is free of obstruction gives rise to normal PDA and posterolateral branch. The saphenous graft to the right coronary artery is occluded. The left main coronary artery is free of obstruction. The circumflex artery has a distal 60-70% stenosis. It gives rise to two large obtuse marginal artery which are free of obstruction. The left anterior descending artery is totally occluded after the 1st septal supervisor bottle house cleaners and diagonal artery. The MARSHALL graft to the LAD is occluded. The diagonal artery is free of obstruction. Previous ejection fraction by echo was 20%. There was no aortic stenosis. Summary: Occluded vein graft and MARSHALL graft with a occluded [place] LAD medical management advised. The patient may benefit from upgrade of her defibrillator to a biventricular device and/or CMT therapy. Patient is cleared by Cardiology to discharge. Patient is deemed stable for discharge and follow up cardiology Outpatient. Felt Hat Flanging Operator(s): Cardiology Procedure(s): PATIENT: VALENTE WILSON MR#: [id number] : 1970 SEX: F AGE: 54 LOCATION: [facility] ORDER 06 STATUS: REG REPORT#: [id number] SERVICE 05 REASON: cp ORDERING PHYSICIAN: MARITZA NEGRON MD PROCEDURE: CXR1VW - CHEST 1VW EXAM: CR Chest, 1 View. CLINICAL HISTORY: Chest Pain COMPARISON: None provided. FINDINGS: LUNGS: There is no mass, infiltrate, or acute pulmonary abnormality. PLEURAL SPACES: No pleural effusion or pneumothorax. MEDIASTINUM: Mild cardiomegaly. Status poststernotomy. Stable left-sided AICD device with lead in place. BONES: No aggressively appearing osseous lesion. IMPRESSION: No acute infiltrate. Mild cardiomegaly. /[place] DICTATED BY: TORRES JONES Jr., MD DATE: 11/27/2442 ELECTRONICALLY SIGNED BY: TORRES JONES Jr., MD DATE: 11/27/2442 CATH PROCEDURE REPORT CARDIAC CATHETERIZATION REPORT Date of Service: Nov 27, 2024 After informed consent the patient was prepped and draped in the usual fashion. She received 1 mg of Versed for conscious sedation. She received 15 cc of xylocaine in the right inguinal area subcutaneously. A six [place] sheath was introduced into the right femoral artery using modified Seldinger technique. A Aimee four left six [place] diagnostic catheter was advanced over guidewire to the aortic root wire was removed and the catheter was engaged into the left main coronary artery. The left coronary system was visualized multiple planes the c atheter was removed. A [place] right six [place] diagnostic catheter was then advanced over guidewire to the aortic root wire was removed and catheter engaged into the [place] right coronary artery which was visualized multiple planes. The catheter was then manipulated to the origin of the saphenous graft to the right coronary artery which was visualized and then to the MARSHALL graft to the LAD which was visualized. The catheter was removed and a pigtail catheter was advanced over guidewire across the aortic valve. Wire was removed and hemodynamics measured. Because of an elevated left ventricular end-diastolic pressure of 33 mm Hg no ventriculogram was performed. A pullback with continuous hemodynamic monitoring was performed and catheter was removed. A sheathogram performed and six [place] angio Seal closure device applied. The entire procedure was well tolerated without complications. Findings: [place] right coronary artery has a 50-60% mid RCA stenosis. Remainder of the vessel is free of obstruction gives rise to normal PDA and posterolateral branch. The saphenous graft to the right coronary artery is occluded. The left main coronary artery is free of obstruction. The circumflex artery has a distal 60-70% stenosis. It gives rise to two large obtuse marginal artery which are free of obstruction. The left anterior descending artery is totally occluded after the 1st septal supervisor bottle house cleaners and diagonal artery. The MARSHALL graft to the LAD is occluded. The diagonal artery is free of obstruction. Previous ejection fraction by echo was 20%. There was no aortic stenosis. Summary: Occluded vein graft and MARSHALL graft with a occluded [place] LAD medical management advised. The patient may benefit from upgrade of her defibrillator to a biventricular device and/or CMT therapy. Report dictated by Cuate ALVA,CUATE Allan MD Nov 27, 2024 15:17 Electronically Signed by: CUATE ALVA MD11/27/24 1517 Electronically Co-Signed by: Assessment/Plan: ASSESSMENT: Chest pain rule out ACS POA Chronic anemia POA Uncontrolled diabetes POA Hypertension POA Hyperlipidemia POA Coronary artery disease with CABG x2 and defibrillator placement POA Reproducible chest pain POA possible costochondritis Discharge Instructions: Continue all prescribed heart failure medications Limit sodium intake to less than 2 g per day Fluid restriction as per your sports psychologist Use acetaminophen to manage the pain If you have any severe pain and shortness of breaths please come back to the emergency department Follow up with Cardiology in 1 week Follow up with primary care in 1 week Home Medications: Unable to Obtain Active Prescriptions or Reported Meds Time spent arranging discharge: 1-30 minutes ATTESTATION BY PHYSICIAN I have seen and examined the patient. I reviewed the documentation, medical decision making, and treatment plan as noted by the resident provider above. I agree with the findings and plan of care. Jose Reddy MD, KEERTI K MD Nov 27, 2024 16:26
[2024-11-27] MEDS: morPHINE 2 MG SYG IVP PRN (17:45)
--- NOTE | 2024-11-27 19:28 | NUR ---
DISCHARGED PT WAS EDUCATED ON POST CATH HEART PUNCTURE CARE & S/S OF COMPLICATIONS. PT VERBALIZED TO MAKE SURE SHE CAME BACK TO THE ER IF SHE ENCOUNTERED ANY ISSUES. IV SITES WERE REMOVED WITHOUT COMPLICATION & PT WAS TRANSPORTED TO THE MAIN ENTRANCE VIA W/C BY SURFACE MOUNT TECHNOLOGY OPERATOR. NO S/S OF DISTRESS.
[2024-11-27] MEDS ORDERED: INSULIN GLARgine 100 UNITS/ML 10 ML VIAL SQ SCH (21:00)
[2024-11-27] MEDS ORDERED: atorVAStatin 20 MG TABLET PO SCH (21:00)
== END 2024-11-27 19:30 | disposition home or self-care (01) ==
LOC: EDH 21:59 → INTOOBSV 23:46 → EDHIP 23:46 → 4CH 11-27 01:55
PROVIDERS: ADMIT Internal Medicine; ATTEND Internal Medicine
DX: R07.89 Other chest pain (principal); D64.9 Anemia, unspecified; E11.9 Type 2 diabetes mellitus without complications; I10 Essential (primary) hypertension; E78.5 Hyperlipidemia, unspecified; Z79.02 Long term (current) use of antithrombotics/antiplatelets; Z79.899 Other long term (current) drug therapy; I25.10 Atherosclerotic heart disease of native coronary artery without angina pectoris; Z95.1 Presence of aortocoronary bypass graft
CPT/HCPCS: 99285; 83036; 82550; 83735 ×2; 84484 ×4; 80048; 85025 ×2; 81001; 36415 ×2; 71045; 93005; 93459; 99156; 99157 ×2; 96374; 96375; 84443; 83540; 83550; 80061; 80053; 83880; 85610; 85730; 82948 ×2; C1894; C1760; Q9965; G0378 ×3; J3490 ×2; J2270; J2250; J1644; Q9967; 93458